=== PATIENT | female | born 2000 | race Caucasian/White ===

== ENCOUNTER → 2020-11-15 | Outpatient (CLI) | payer OTHER, MEDICAID | END | disposition home or self-care (01) | LOC: STAR 15:58 | PROVIDERS: ATTEND Anesthesiology | DX: Z20.828 Contact with and (suspected) exposure to other viral communicable diseases (principal) | CPT/HCPCS: 87635 ==

== ENCOUNTER 2020-11-20 14:30 | Day surgery (SDC) | payer OTHER, MEDICAID ==
[~2020-11-20] VITALS: Ht 182.9 cm; Wt 87.0 kg
[2020-11-20] MEDS ORDERED: CHLORHEXIDINE 15 ML UDC MM ONE (15:10)
[2020-11-20 15:12] VITALS: BP 113/73
[2020-11-20] MEDS ORDERED: LACTATED RINGERS 1,000 ML IV SCH (15:30)
[2020-11-20 16:11] LABS: HCG UR SG 1.017 (1.003-1.030)
[2020-11-20] MEDS ORDERED: LURA20TA PO (16:13)
[2020-11-20] MEDS ORDERED: TRAZ50TA66 PO (16:13)
[2020-11-20] MEDS ORDERED: FENTANYL PF 250 MCG/5ML ONE (17:44)
[2020-11-20] MEDS ORDERED: MIDAZOLAM 1 MG/ML, 2ML ONE (18:02)
[2020-11-20] MEDS ORDERED: ONDANSETRON 2MG/ML, 2ML ONE (18:17)
[2020-11-20] MEDS ORDERED: DEXAMETHASONE 4 MG/ML, 1ML ONE (18:17)
[2020-11-20] MEDS ORDERED: PROPOFOL 10 MG/ML, 20ML ONE (18:17)
[2020-11-20] MEDS ORDERED: CEFAZOLIN 1,000 MG ONE (18:17)
[2020-11-20] MEDS ORDERED: KETOROLAC 30 MG/1 ML ONE (18:18)
[2020-11-20] MEDS ORDERED: LIDOCAINE-MPF 2% ,5ML ONE (18:18)
[2020-11-20] MEDS ORDERED: HYDROmorphone 1 MG/ML, 1ML INJ IVPush PRN (19:00)
[2020-11-20] MEDS ORDERED: LORazepam 2 MG/ML, 1ML IVPush PRN (19:00)
[2020-11-20] MEDS ORDERED: FENTANYL PF 100 MCG/2ML IV PRN (19:00)
[2020-11-20] MEDS ORDERED: ACETAMINOPHEN 325 MG TABLET PO PRN (19:00)
[2020-11-20] MEDS ORDERED: PROMETHAZINE 25 MG/ML, 1ML IVPush PRN (19:00)
[2020-11-20] MEDS ORDERED: OXYcodone 5 MG/5 ML ORAL.SOL UDC PO PRN (19:00)
[2020-11-20] MEDS ORDERED: MEPERIDINE/PF 25MG/0.5ML IVPush PRN (19:00)
[2020-11-20] MEDS ORDERED: TRAZODONE 50MG TABLET PO SCH (21:00)
[2020-11-21] MEDS ORDERED: LURASIDONE 20 MG TABLET PO SCH (09:00)
== END 2020-11-20 19:40 | disposition home or self-care (01) ==
LOC: OUT 14:30
PROVIDERS: ATTEND Urology
DX: N12 Tubulo-interstitial nephritis, not specified as acute or chronic (principal); N39.0 Urinary tract infection, site not specified; N36.1 Urethral diverticulum; N32.89 Other specified disorders of bladder; Z88.1 Allergy status to other antibiotic agents; Z79.899 Other long term (current) drug therapy; Z87.891 Personal history of nicotine dependence
CPT/HCPCS: 52000; 81025; J0690; J1100; J1885; J2250; J2405; J2704; J3010; J7120